=== PATIENT | female | born 1975 | race Caucasian/White ===

== ENCOUNTER → 2018-07-23 | Outpatient (CLI) | payer OTHER ==
[~2018-07-23] VITALS: Ht 163.8 cm; Wt 124.1 kg
[~2018-07-23] MED LIST: NATURE'S BLE1000 MCG PO; SYNTHROID0.088 MG/T PO; TOPROL XL 50MG50 MG PO; ZANTAC 150MG T150 MG PO; [UNRECOGNIZED DRUG - OTHER] PO
[2018-07-23 15:27] VITALS: BP 120/76; PULSE 80
== END ==
LOC: LIGHT 14:23
DX: Z01.818 Encounter for other preprocedural examination (principal); E66.01 Morbid (severe) obesity due to excess calories; Z68.42 Body mass index [BMI] 45.0-49.9, adult
CPT/HCPCS: G0463

== ENCOUNTER 2018-07-26 10:04 | Inpatient (IN) | payer OTHER ==
[~2018-07-26] VITALS: Ht 165.1 cm; Wt 261.0 kg
[2018-08-08] VITALS (11 sets, daily range): BP systolic 134–157; BP diastolic 8–92; PULSE 71–93; TEMP 97.9–99.7
[2018-08-08] MEDS ORDERED: VITAMIN B122500 MCG PO (11:51)
[2018-08-08] MEDS ORDERED: CALTRATE-600 W600 MG PO (11:53)
[2018-08-08] MEDS ORDERED: VITAMIND3 5000 (11:54)
[2018-08-09 02:49] VITALS: BP 116/64; PULSE 96; TEMP 98.6
[2018-08-09 08:09] VITALS: BP 122/55; PULSE 70; TEMP 98.8
[2018-08-09 12:33] VITALS: BP 111/65; PULSE 69; TEMP 99.1
[2018-08-09 16:54] VITALS: BP 117/95; PULSE 78; TEMP 99.1
== END 2018-08-09 17:45 | disposition home or self-care (01) | DRG 621 ==
LOC: SURG 08-08 10:11 → INPTSU 08-08 10:11 → SURG 08-08 14:15
PROVIDERS: Surgery
PROC: 0DB64Z3 Excision of Stomach, Percutaneous Endoscopic Approach, Vertical (ICD-10-PCS; principal; 2018-08-08 14:15)
DX: E66.01 Morbid (severe) obesity due to excess calories (principal); Z68.42 Body mass index [BMI] 45.0-49.9, adult; K21.9 Gastro-esophageal reflux disease without esophagitis; E03.9 Hypothyroidism, unspecified
CPT/HCPCS: J0690; J1100; J1885; J2270; J2405; J2704; J2710; J2765; J3010; J7042; J7120

== ENCOUNTER → 2018-07-30 | Outpatient (CLI) | payer OTHER | LOC: LIGHT 07:56 | DX: Z01.818 Encounter for other preprocedural examination (principal); Z68.42 Body mass index [BMI] 45.0-49.9, adult ==

== ENCOUNTER → 2018-09-17 | Outpatient (CLI) | payer OTHER ==
[~2018-09-17] VITALS: Ht 162.6 cm; Wt 107.3 kg
[~2018-09-17] MED LIST changes: +CALTRATE-600 W600 MG PO; +CENTRUM1 TA1; +COLACE 100100 MG/CAP PO; +FLINTSTONES W/I1 CTB PO; +VITAMIN B122500 MCG PO; +VITAMIND3 5000
[2018-09-17 13:37] VITALS: BP 110/78; PULSE 88
== END ==
LOC: LIGHT 12:45
DX: Z98.84 Bariatric surgery status (principal); Z68.41 Body mass index [BMI] 40.0-44.9, adult; Z71.3 Dietary counseling and surveillance

== ENCOUNTER → 2018-11-12 | Outpatient (CLI) | payer OTHER ==
[~2018-11-12] VITALS: Ht 162.6 cm; Wt 97.5 kg
[2018-11-12 13:32] VITALS: BP 104/70; PULSE 76
== END ==
LOC: LIGHT 09:56
DX: Z98.84 Bariatric surgery status (principal); E66.01 Morbid (severe) obesity due to excess calories; Z68.36 Body mass index [BMI] 36.0-36.9, adult; Z71.3 Dietary counseling and surveillance
CPT/HCPCS: G0463

== ENCOUNTER → 2019-02-04 | Outpatient (CLI) | payer OTHER ==
[~2019-02-04] VITALS: Ht 162.6 cm; Wt 87.8 kg
[2019-02-04 14:43] VITALS: BP 96/64; PULSE 77
== END ==
LOC: LIGHT 11:23
DX: Z98.84 Bariatric surgery status (principal); Z68.33 Body mass index [BMI] 33.0-33.9, adult; Z71.3 Dietary counseling and surveillance
CPT/HCPCS: G0463

== ENCOUNTER → 2022-01-26 | Outpatient (CLI) | payer OTHER | LOC: COL.PUL 12:35 | DX: R06.02 Shortness of breath (principal) | CPT/HCPCS: J7674 ==

== ENCOUNTER → 2022-02-22 | Outpatient (CLI) | payer OTHER | LOC: COL.VAS 08:25 | DX: I08.1 Rheumatic disorders of both mitral and tricuspid valves (principal); J90 Pleural effusion, not elsewhere classified; R91.8 Other nonspecific abnormal finding of lung field ==